=== PATIENT | male | born 1975 | race African-American/Black ===

== ENCOUNTER 2021-05-20 11:53 | Emergency (ER) | payer MEDICAID, OTHER ==
[~2021-05-20] VITALS: Ht 172.7 cm; Wt 64.0 kg
[~2021-05-20 11:53] MED LIST: HALO2TAB
[2021-05-20 12:11] VITALS: BP 146/109
[2021-05-20] MEDS ORDERED: MUPI15CR11 TP (12:22)
== END 2021-05-20 12:38 | disposition home or self-care (01) ==
LOC: ER 11:53
DX: L01.00 Impetigo, unspecified (principal); F12.10 Cannabis abuse, uncomplicated; F17.210 Nicotine dependence, cigarettes, uncomplicated
CPT/HCPCS: 99283